=== PATIENT | female | born 1995 | race Caucasian/White ===

== ENCOUNTER 2022-07-04 15:31 | Emergency (ER) | payer MEDICAID ==
[~2022-07-04] VITALS: Ht 154.9 cm; Wt 55.0 kg
[2022-07-04] MEDS ORDERED: LORAZEPAM 2MG/ML CPJ IV ONE (17:00)
[2022-07-04 19:45] VITALS: BP 111/68
== END 2022-07-04 20:39 | disposition home or self-care (01) ==
LOC: EDSEX 15:31 → ER 15:31
DX: F41.9 Anxiety disorder, unspecified (principal); F41.0 Panic disorder [episodic paroxysmal anxiety]; R00.2 Palpitations
CPT/HCPCS: 36415; 84484; 93005; 96374; 99284; J2060; Z7610